=== PATIENT | female | born 2000 | race Caucasian/White ===

== ENCOUNTER 2019-03-31 13:57 | Emergency (ER) | payer OTHER ==
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
[2019-03-31 15:47] VITALS: BP 112/67
== END 2019-03-31 15:41 | disposition home or self-care (01) ==
LOC: ER 13:57
DX: J34.89 Other specified disorders of nose and nasal sinuses (principal); Y04.2XXA Assault by strike against or bumped into by another person, initial encounter; Y93.89 Activity, other specified; Y92.129 Unspecified place in nursing home as the place of occurrence of the external cause; Y99.0 Civilian activity done for income or pay
CPT/HCPCS: 70160; 99283